=== PATIENT | female | born 1995 | race Caucasian/White ===

== ENCOUNTER 2020-10-01 20:54 | Emergency (ER) | payer OTHER, SELFPAY ==
[2020-10-01 21:04] LABS: Microscopic, Urine URINE MICROSCOPIC (MICROSCOPIC)
[2020-10-01 21:05] LABS: Appearance,Urine SL CLOUDY (Clear); Bilirubin,Urine Negative (Negative); Blood, Urine 1+ (Negative); Color,Urine YELLOW (Yellow); Glucose,Urine (UA) Negative (Negative); Ketones,Urine Negative (Negative); Leukocyte Esterase,Urine TRACE (Negative); Nitrate,Urine Negative (Negative); PH,Urine 6.5 (5.0-8.5); Protein,Urine Negative (Negative); Specific Gravity, Urine <= 1.005 (1.005-1.030); Urobilinogen,Urine 0.2 EU/dl (0.2)
[2020-10-01 21:06] VITALS: BMI 29.2
[2020-10-01 21:08] LABS: Urine Pregnancy, HCG Qual. Negative (Negative)
[2020-10-01 21:09] VITALS: BP 140/95; PULSE 91; RESP 18; TEMP 36.9; O2SAT 97; BMI 29.2
--- NOTE | 2020-10-01 21:09 | CT_ITS ---
PROCEDURE INFORMATION: Exam: CT Abdomen And Pelvis With Contrast Exam date and time: 10/01/2020 9:09 PM Age: 25 years old Clinical indication: Nausea and vomiting; Abdominal pain; Localized; Patient HX: Lower abd pain with n/v, irregular bm; Additional info: Upper abd pain TECHNIQUE: Imaging protocol: Computed tomography of the abdomen and pelvis with contrast. Radiation optimization: All CT scans at this facility use at least one of these dose optimization techniques: automated exposure control; mA and/or kV adjustment per patient size (includes targeted exams where dose is matched to clinical indication); or iterative reconstruction. Contrast material: ISOVUE; Contrast volume: 75 ml; Contrast route: IV; COMPARISON: CR KUB KUB (SINGLE VIEW) 01/21/2016 9:52 AM FINDINGS: Lungs: Lung bases are clear. Liver: Normal. No mass. Gallbladder and bile ducts: Normal. No calcified stones. No ductal dilation. Pancreas: Normal. No ductal dilation. Spleen: Normal. No splenomegaly. Adrenal glands: Normal. No mass. Kidneys and ureters: Normal. No hydronephrosis. Stomach and bowel: Unremarkable. No obstruction. No mucosal thickening. Appendix: A normal appendix is identified. Intraperitoneal space: Unremarkable. No free air. No significant fluid collection. Vasculature: Unremarkable. No abdominal aortic aneurysm. Lymph nodes: Unremarkable. No enlarged lymph nodes. Urinary bladder: Unremarkable as visualized. Reproductive: Unremarkable as visualized. Bones/joints: Unremarkable. No acute fracture. Soft tissues: Unremarkable. IMPRESSION: Negative for acute abdominopelvic pathology.
[2020-10-01 21:14] LABS: Bacteria,Urine Trace /lpf; RBC,Urine Occasional #/hpf (0-3); WBC,Urine Occasional #/hpf (0-3)
[2020-10-01 21:17] LABS: Basophils # 0.1 K/mm3 (0-0.2); Basophils % 0.6 % (0.1-2.0); Eosinophils # 0.2 K/mm3 (0.0-0.4); Eosinophils % 1.8 % (0.1-12.0); Hematocrit 39.8 % (37.0-47.0); Hemoglobin 13.9 g/dL (12.2-16.2); Lymphocytes # 4.3 K/mm3 (0.7-4.5); Mean Corpuscular Hemoglobin 29.6 pg (27.0-31.2); Mean Corpuscular Volume 84.5 fl (81-99); Mean Platelet Volume 8.2 fl (7.4-10.4); Monocytes # 0.5 K/mm3 (0.1-1.0); Monocytes % 5.6 % (1.7-9.3); Neutrophils # 4.5 K/mm3 (1.8-7.8); Platelet Count 252 K/mm3 (142-424); Red Blood Count 4.71 M/mm3 (4.20-5.40); Red Cell Distribution Width 13.6 % (11.5-17.5); White Blood Count 9.6 K/mm3 (4.8-10.8)
[2020-10-01 21:19] LABS: Alanine Aminotransferase 23 U/L (12-78); Albumin Level 4.9 g/dl (3.5-5.0); Albumin/Globulin Ratio 1.4 (1.1-1.8); Alkaline Phosphatase 63 U/L (38-126); Amylase 60 U/L (30-110); Anion Gap 14.5 mEq/L (5-15); Aspartate Amino Transferase 30 U/L (14-36); Bilirubin,Total 0.6 mg/dl (0.2-1.3); Blood Urea Nitrogen 14 mg/dl (7-17); Calcium 9.8 mg/dl (8.4-10.2); Carbon Dioxide 25 mmol/L (22.0-30.0); Chloride 104 mmol/L (98-107); Creatinine Clearance Estimated 97 mL/min (50-200); Estimated Glomerular Filt Rate 67 ml/min (>60); GFR (African American) 80 ML/MIN (>60); Globulin 3.6 g/dL (1.3-3.2); Glucose 107 mg/dl (74-100); Lipase 34 U/L (23-300); Potassium 3.5 mmoL/L (3.5-5.1); Sodium 140 mmol/L (136-145); Total Protein,Serum 8.5 g/dl (6.3-8.2)
[2020-10-01 21:24] LABS: C-Reactive Protein 2.4 mg/L (0-4)
[2020-10-01 21:31] VITALS: BP 134/72; PULSE 72; O2SAT 100
[2020-10-01 21:38] LABS: Procalcitonin 0.033 ng/mL (0.0-2.0)
[2020-10-01 21:44] LABS: Erythrocyte Sedimentation Rate 18 mm/hr (0-20)
[2020-10-01 22:00] VITALS: BP 102/58; PULSE 62; O2SAT 98
--- NOTE | 2020-10-01 22:02 | HMH.EDNVD ---
ED Disposition Clinical Impression: Abdominal pain Qualifiers: Abdominal location: epigastric Qualified Code(s): R10.13 - Epigastric pain Disposition: Home, Self-Care Condition on Discharge: Good Instructions: DI for Acute Abdominal Pain Additional Instructions: call pcp saturday for follow up Referrals: Lilia Mojica [Primary Care Provider] - - Critical Care Critical Care Time: No Attestation: On 10/01/20, the high probability of a clinically significant, sudden or life threatening deterioration of the following system(s) required my full and direct attention, intervention and personal management. The time I documented below is in addition to time spent performing reported procedures but includes the following listed in this critical care notation. Medical Decision Making - Medical Records Medical records reviewed: Yes: I reviewed the patient's medical records. - Chris Inquiry Pt receiving controlled substance: No Vital Signs: 10/01/20 21:09 10/01/20 21:31 10/01/20 22:00 Temperature 98.5 F Temperature Source Oral Pulse Rate 72 62 Pulse Rate [Right] 91 H Respiratory Rate 18 Blood Pressure 134/72 102/58 L Blood Pressure [Right Arm] 140/95 H Blood Pressure Mean [Right Arm] 110 Blood Pressure Source [Right Arm] Automatic Cuff Blood Pressure Position [Right Arm] Supine 02 Sat by Pulse Oximetry 97 100 98 Oxygen Delivery Method Room Air - Lab Data Lab results reviewed: Yes: I reviewed the patient's lab results. Lab Results 10/01/20 21:00: Urine Color Yellow, Urine Appearance Sl cloudy, Urine pH 6.5, Ur Specific [place] <= 1.005, Urine Protein Negative, Urine Glucose (UA) Negative, Urine Ketones Negative, Urine Blood 1+, Urine Nitrate Negative, Urine Bilirubin Negative, Urine Urobilinogen 0.2, Ur Leukocyte Esterase Trace, Urine RBC Occasional, Urine WBC Occasional, Ur Squamous Epith Cells 5-10, Urine Bacteria Trace 10/01/20 21:00: Urine HCG, Qual Negative 10/01/20 21:05: WBC 9.6, RBC 4.71, Hgb 13.9, Hct 39.8, MCV 84.5, MCH 29.6, MCHC 35.0, RDW 13.6, Plt Count 252, MPV 8.2, Neut % (Auto) 47.0, Lymph % (Auto) 45.0, [place] % (Auto) 5.6, Eos % (Auto) 1.8, Baso % (Auto) 0.6, Neut # (Auto) 4.5, Lymph # (Auto) 4.3, [place] # (Auto) 0.5, Eos # (Auto) 0.2, Baso # (Auto) 0.1, ESR 18 10/01/20 21:05: Sodium 140, Potassium 3.5, Chloride 104, Carbon Dioxide 25, Anion Gap 14.5, BUN 14, Creatinine 1.00, Estimated Creat Clear 97, Estimated GFR 67, Est GFR ( Amer) 80, Glucose 107 H, Calcium 9.8, Total Bilirubin 0.6, AST 30, ALT 23, Alkaline Phosphatase 63, C-Reactive Protein 2.4, Total Protein 8.5 H, Albumin 4.9, Globulin 3.6 H, Albumin/Globulin Ratio 1.4, Amylase 60, Lipase 34, Procalcitonin 0.033 Result diagrams: 10/01/20 21:05 10/01/20 21:05 Orders (Tests/Meds): ED MEDICATIONS Generic Name Dose Route Start Last Admin Trade Name Freq PRN Reason Stop Dose Admin Sodium Chloride 1,000 mls @ 999 mls/hr 10/01/20 21:15 10/01/20 21:25 Sod Chlor 0.9% 1000ml Bag IV 10/01/20 22:15 999 mls/hr .Q1H1M EMA Administration Sodium Chloride 8 ml 10/01/20 21:07 Sodium Chloride 0.9% 10ml Vial IV 10/31/20 21:06 NEEDED PRN dilute pepcid Discontinued Medications Generic Name Dose Route Start Last Admin Trade Name Freq PRN Reason Stop Dose Admin Famotidine 20 mg 10/01/20 21:07 10/01/20 21:25 Famotidine 20mg/2ml Vial IV 10/01/20 21:08 20 mg ONCE ONE Administration Iopamidol 75 ml 10/01/20 22:21 10/01/20 22:22 Iopamidol-370 (76%);100ml Bottle IV 10/01/20 22:22 75 ml ONCE ONE Administration Ketorolac Tromethamine 30 mg 10/01/20 21:07 10/01/20 21:26 Ketorolac 30mg/Ml Vial IV 10/01/20 21:08 30 mg ONCE ONE Administration Metoclopramide HCl 10 mg 10/01/20 21:07 10/01/20 21:25 Metoclopramide Hcl 10mg/2ml Vial IVP 10/01/20 21:08 10 mg ONCE ONE Administration Ondansetron HCl 4 mg 10/01/20 21:07 10/01/20 21:25 Ondansetron 4mg/2ml Vial
[2020-10-01 22:30] VITALS: BP 118/64; PULSE 73; O2SAT 99
[2020-10-01 23:00] VITALS: BP 119/72; PULSE 66; O2SAT 100
[2020-10-01 23:16] VITALS: BP 119/72; PULSE 66; RESP 16; TEMP 36.9; O2SAT 100
== END 2020-10-01 23:20 | disposition home or self-care (01) ==
PROVIDERS: Emergency Provider Emergency Medicine; PCP Family Medicine
DX: R10.13 Epigastric pain (principal); F12.10 Cannabis abuse, uncomplicated; F17.210 Nicotine dependence, cigarettes, uncomplicated
CPT/HCPCS: 74177; 80053; 81001; 81025; 82150; 83690; 84145; 85025; 85651; 86140; 96365; 96375; 99283; J2405; Q9967

== ENCOUNTER 2020-10-06 00:29 | Emergency (ER) | payer OTHER, SELFPAY ==
[2020-10-06] VITALS (8 sets, daily range): BP systolic 114–157; BP diastolic 58–107; PULSE 61–88; RESP 16–20; TEMP 36.6; O2SAT 98–100; BMI 27.4
--- NOTE | 2020-10-06 00:58 | ECG_ITS ---
APPROVED REPORT Exam: Resting ECG HR:67 bpm ECG Measurements Heart Rate 67 AXES WI 124 P 65 QRSd 78 QRS 67 QT 384 T 39 QTc 405 Conclusion Normal sinus rhythm Normal ECG Electronically signed by : Darshan Kemp, 10/06/2020 17:00:42
--- NOTE | 2020-10-06 01:09 | CT_ITS ---
PROCEDURE INFORMATION: Exam: CT Abdomen And Pelvis With Contrast Exam date and time: 10/06/2020 1:09 AM Age: 25 years old Clinical indication: Abdominal pain; Patient HX: Ruq pain TECHNIQUE: Imaging protocol: Computed tomography of the abdomen and pelvis with contrast. Radiation optimization: All CT scans at this facility use at least one of these dose optimization techniques: automated exposure control; mA and/or kV adjustment per patient size (includes targeted exams where dose is matched to clinical indication); or iterative reconstruction. Contrast material: ISOVUE; Contrast volume: 75 ml; Contrast route: IV; COMPARISON: CT ABDOMEN PELVIS W CON 10/01/2020 10:11 PM FINDINGS: Lungs: 0.3 cm nodule vs focal scarring within RIGHT middle lobe. Liver: Unremarkable. Gallbladder and bile ducts: No calcified stones. No ductal dilation. Pancreas: Unremarkable. No ductal dilation. Spleen: No splenomegaly. Adrenal glands: No mass. Kidneys and ureters: Unremarkable. No significant hydronephrosis. Stomach and bowel: Segmental areas of probable underdistention of colon. No definite mural thickening. No associated inflammatory stranding. No obstruction. Appendix: Normal caliber. No inflammation. Intraperitoneal space: No significant fluid collection. No definite free air. Vasculature: Unremarkable. No aneurysm. Lymph nodes: No pathologically enlarged lymph nodes. Urinary bladder: Unremarkable. Reproductive: Tampon within vaginal vault. Bones/joints: No acute fracture. Soft tissues: Unremarkable. IMPRESSION: 1. No definite acute intraabdominal abnormality. 2. Pulmonary nodule. If patient does not have known cancer, follow up should be based on clinical information because of the low risk of cancer in this age group. (usman Can al., Fleischner Society, 2017).
--- NOTE | 2020-10-06 01:12 | XR_ITS ---
PROCEDURE INFORMATION: Exam: XR Chest Exam date and time: 10/06/2020 1:12 AM Age: 25 years old Clinical indication: Angina pectoris; Patient HX: Anxiety w chest pains; Additional info: Passing out TECHNIQUE: Imaging protocol: XR of the chest. Views: 2 views. COMPARISON: CT ABDOMEN PELVIS W CON 10/06/2020 2:41 AM FINDINGS: Tubes, catheters and devices: Leads overlying chest. Lungs: No consolidation. Pleural spaces: No significant pleural effusion. No pneumothorax. Heart/Mediastinum: No cardiomegaly. Bones/joints: No displaced fracture. Soft tissues: Unremarkable. IMPRESSION: No definite acute cardiopulmonary disease.
[2020-10-06 01:15] LABS: Microscopic, Urine URINE MICROSCOPIC (MICROSCOPIC)
[2020-10-06 01:43] LABS: Urine Pregnancy, HCG Qual. Negative (Negative)
[2020-10-06 01:44] LABS: Appearance,Urine CLEAR (Clear); Bilirubin,Urine Negative (Negative); Blood, Urine 3+ (Negative); Color,Urine YELLOW (Yellow); Glucose,Urine (UA) Negative (Negative); Ketones,Urine Negative (Negative); Leukocyte Esterase,Urine Negative (Negative); Nitrate,Urine Negative (Negative); Protein,Urine Negative (Negative); Urobilinogen,Urine 0.2 EU/dl (0.2)
[2020-10-06 01:55] LABS: Alanine Aminotransferase 25 U/L (12-78); Albumin Level 4.3 g/dl (3.5-5.0); Albumin/Globulin Ratio 1.4 (1.1-1.8); Alkaline Phosphatase 65 U/L (38-126); Amylase 46 U/L (30-110); Anion Gap 12.7 mEq/L (5-15); Aspartate Amino Transferase 23 U/L (14-36); Basophils % 0.4 % (0.1-2.0); Bilirubin,Total 0.4 mg/dl (0.2-1.3); Blood Urea Nitrogen 5 mg/dl (7-17); Calcium 9.3 mg/dl (8.4-10.2); Carbon Dioxide 27 mmol/L (22.0-30.0); Chloride 109 mmol/L (98-107); Creatinine Clearance Estimated 130 mL/min (50-200); Eosinophils # 0.2 K/mm3 (0.0-0.4); Eosinophils % 2.2 % (0.1-12.0); Estimated Glomerular Filt Rate 100 ml/min (>60); GFR (African American) 121 ML/MIN (>60); Glucose 92 mg/dl (74-100); Hematocrit 36.4 % (37.0-47.0); Hemoglobin 12.6 g/dL (12.2-16.2); Lipase 16 U/L (23-300); Lymphocytes # 2.5 K/mm3 (0.7-4.5); Lymphocytes % 25.6 % (10-50); Mean Corpuscular HGB Conc 34.6 g/dL (31.8-35.4); Mean Corpuscular Hemoglobin 29.3 pg (27.0-31.2); Mean Corpuscular Volume 84.7 fl (81-99); Mean Platelet Volume 8.4 fl (7.4-10.4); Monocytes # 0.4 K/mm3 (0.1-1.0); Monocytes % 4.3 % (1.7-9.3); Neutrophils # 6.6 K/mm3 (1.8-7.8); Neutrophils % 67.4 % (37.0-80.0); Platelet Count 223 K/mm3 (142-424); Potassium 3.7 mmoL/L (3.5-5.1); Red Cell Distribution Width 13.6 % (11.5-17.5); Sodium 145 mmol/L (136-145); Total Protein,Serum 7.3 g/dl (6.3-8.2); White Blood Count 9.8 K/mm3 (4.8-10.8)
--- NOTE | 2020-10-06 02:01 | HMH.EDNVD ---
ED Disposition Clinical Impression: Abdominal pain Qualifiers: Abdominal location: epigastric Qualified Code(s): R10.13 - Epigastric pain Disposition: Home, Self-Care Condition on Discharge: Good Instructions: DI for Acute Abdominal Pain Additional Instructions: please see pcp for follow up Referrals: Lilia Mojica [Primary Care Provider] - - Critical Care Critical Care Time: No Attestation: On 10/06/20, the high probability of a clinically significant, sudden or life threatening deterioration of the following system(s) required my full and direct attention, intervention and personal management. The time I documented below is in addition to time spent performing reported procedures but includes the following listed in this critical care notation. Medical Decision Making - Medical Records Medical records reviewed: Yes: I reviewed the patient's medical records. - Chris Inquiry Pt receiving controlled substance: No Vital Signs: 10/06/20 00:31 10/06/20 00:58 10/06/20 01:38 Temperature 97.8 F Temperature Source Oral Pulse Rate 71 61 Pulse Rate [Right] 75 Respiratory Rate 20 Blood Pressure 139/84 134/77 Blood Pressure [Right Arm] 157/107 H Blood Pressure Mean Blood Pressure Mean [Right Arm] 123 02 Sat by Pulse Oximetry 100 98 98 10/06/20 02:01 10/06/20 02:32 10/06/20 03:09 Temperature Temperature Source Pulse Rate 69 78 74 Pulse Rate [Right] Respiratory Rate Blood Pressure 138/89 114/58 L 116/72 Blood Pressure [Right Arm] Blood Pressure Mean 82 Blood Pressure Mean [Right Arm] 02 Sat by Pulse Oximetry 100 100 98 10/06/20 03:30 Temperature Temperature Source Pulse Rate 88 Pulse Rate [Right] Respiratory Rate Blood Pressure 131/72 Blood Pressure [Right Arm] Blood Pressure Mean 91 Blood Pressure Mean [Right Arm] 02 Sat by Pulse Oximetry 98 - Lab Data Lab results reviewed: Yes: I reviewed the patient's lab results. Lab Results 10/06/20 01:05: Urine Color Yellow, Urine Appearance Clear, Urine pH 7.0, Ur Specific [place] 1.020, Urine Protein Negative, Urine Glucose (UA) Negative, Urine Ketones Negative, Urine Blood 3+, Urine Nitrate Negative, Urine Bilirubin Negative, Urine Urobilinogen 0.2, Ur Leukocyte Esterase Negative, Urine RBC 5-10, Urine WBC 3-5, Ur Squamous Epith Cells 3-5, Urine Bacteria None 10/06/20 01:05: Urine HCG, Qual Negative 10/06/20 01:34: WBC 9.8, RBC 4.30, Hgb 12.6, Hct 36.4 L, MCV 84.7, MCH 29.3, MCHC 34.6, RDW 13.6, Plt Count 223, MPV 8.4, Neut % (Auto) 67.4, Lymph % (Auto) 25.6, [place] % (Auto) 4.3, Eos % (Auto) 2.2, Baso % (Auto) 0.4, Neut # (Auto) 6.6, Lymph # (Auto) 2.5, [place] # (Auto) 0.4, Eos # (Auto) 0.2, Baso # (Auto) 0.0 10/06/20 01:34: Sodium 145, Potassium 3.7, Chloride 109 H, Carbon Dioxide 27, Anion Gap 12.7, BUN 5 L, Creatinine 0.70, Estimated Creat Clear 130, Estimated GFR 100, Est GFR ( Amer) 121, Glucose 92, Calcium 9.3, Total Bilirubin 0.4, AST 23, ALT 25, Alkaline Phosphatase 65, C-Reactive Protein 2.0, Total Protein 7.3, Albumin 4.3, Globulin 3.0, Albumin/Globulin Ratio 1.4, Amylase 46, Lipase 16 L 10/06/20 01:34: ESR 19 10/06/20 01:34: Troponin I < 0.01, Procalcitonin < 0.030 Result diagrams: 10/06/20 01:34 10/06/20 01:34 Orders (Tests/Meds): ED MEDICATIONS Generic Name Dose Route Start Last Admin Trade Name Freq PRN Reason Stop Dose Admin Sodium Chloride 1,000 mls @ 999 mls/hr 10/06/20 01:15 10/06/20 01:44 Sod Chlor 0.9% 1000ml Bag IV 10/06/20 02:15 999 mls/hr .Q1H1M EMA Administration Sodium Chloride 1,000 mls @ 999 mls/hr 10/06/20 03:15 10/06/20 03:15 Sod Chlor 0.9% 1000ml Bag IV 10/06/20 04:15 999 mls/hr .Q1H1M EMA Administration Sodium Chloride 8 ml 10/06/20 01:13 Sodium Chloride 0.9% 10ml Vial IV 11/05/20 01:12 NEEDED PRN dilute pepcid Discontinued Medications Generic Name Dose Route Start Last Admin Trade Name Freq PRN Reason Stop Dose
[2020-10-06 02:13] LABS: Troponin I < 0.01 ng/ml (0.00-0.034)
[2020-10-06 02:18] LABS: Procalcitonin < 0.030 ng/mL (0.0-2.0)
[2020-10-06 02:36] LABS: Erythrocyte Sedimentation Rate 19 mm/hr (0-20)
== END 2020-10-06 04:51 | disposition home or self-care (01) ==
PROVIDERS: Emergency Provider Emergency Medicine; PCP Family Medicine
DX: R10.13 Epigastric pain (principal); F41.9 Anxiety disorder, unspecified; F17.210 Nicotine dependence, cigarettes, uncomplicated
CPT/HCPCS: 71046; 74177; 80053; 81001; 81025; 82150; 83690; 84145; 84484; 85025; 85651; 86140; 93005; 96365; 96366; 96375; 99282; 99283; J2405; Q9967

== ENCOUNTER 2020-10-17 15:49 | Emergency (ER) | payer OTHER, SELFPAY ==
[2020-10-17 15:50] VITALS: BP 136/93; PULSE 110; RESP 18; TEMP 36.9; O2SAT 98; BMI 25.7
[2020-10-17 16:11] VITALS: BP 129/87; PULSE 104; O2SAT 97
--- NOTE | 2020-10-17 16:17 | HMH.EDABDPAI ---
ED Disposition Clinical Impression: Cholecystitis Disposition: Home, Self-Care Condition on Discharge: Fair Instructions: DI for Acute Abdominal Pain Prescriptions: Dicyclomine HCl 20 mg PO QID 7 Days #1 tab Transmission Status: Received by [facility] Referrals: Lilia Mojica [Primary Care Provider] - Robert Dupree MD [Staff Physician] - 3 days (Upper abdominal pain for several weeks. Had an outpatient DISIDA scan/HIDA scan showing decreased gallbladder function. Normal labs today. Will be discharged on Bentyl.) - Critical Care Critical Care Time: No Attestation: On 10/17/20, the high probability of a clinically significant, sudden or life threatening deterioration of the following system(s) required my full and direct attention, intervention and personal management. The time I documented below is in addition to time spent performing reported procedures but includes the following listed in this critical care notation. Medical Decision Making - Chris Inquiry Pt receiving controlled substance: No Vital Signs: 10/17/20 15:50 10/17/20 16:11 10/17/20 16:30 Temperature 98.5 F Temperature Source Oral Pulse Rate 104 H 92 H Pulse Rate [Right] 110 H Respiratory Rate 18 Blood Pressure 129/87 134/87 Blood Pressure [Right Arm] 136/93 H Blood Pressure Mean 104 Blood Pressure Mean [Right Arm] 107 02 Sat by Pulse Oximetry 98 97 97 Oxygen Delivery Method Room Air 10/17/20 17:51 10/17/20 17:58 Temperature 98 F 98.6 F Temperature Source Oral Pulse Rate 84 86 Pulse Rate [Right] Respiratory Rate 16 16 Blood Pressure 128/92 H 111/75 Blood Pressure [Right Arm] Blood Pressure Mean Blood Pressure Mean [Right Arm] 02 Sat by Pulse Oximetry Oxygen Delivery Method Room Air - Lab Data Lab Results 10/17/20 16:20: WBC 8.3, RBC 4.99, Hgb 14.9, Hct 42.1, MCV 84.4, MCH 29.9, MCHC 35.5 H, RDW 13.9, Plt Count 238, MPV 8.4, Neut % (Auto) 58.1, Lymph % (Auto) 36.8, [place] % (Auto) 3.8, Eos % (Auto) 0.8, Baso % (Auto) 0.6, Neut # (Auto) 4.8, Lymph # (Auto) 3.0, [place] # (Auto) 0.3, Eos # (Auto) 0.1, Baso # (Auto) 0.1 10/17/20 16:20: Sodium 143, Potassium 4.3, Chloride 108 H, Carbon Dioxide 24, Anion Gap 15.3 H, BUN 7, Creatinine 0.70, Estimated Creat Clear 122, Estimated GFR 100, Est GFR ( Amer) 121, Glucose 95, Calcium 10.0, Total Bilirubin 0.4, AST 22, ALT 17, Alkaline Phosphatase 71, Total Protein 8.3 H, Albumin 5.0, Globulin 3.3 H, Albumin/Globulin Ratio 1.5, Lipase 19 L 10/17/20 16:20: Serum HCG, Qual Negative 10/17/20 16:50: Urine Color Yellow, Urine Appearance Sl cloudy, Urine pH 8.0, Ur Specific [place] 1.010, Urine Protein Negative, Urine Glucose (UA) Negative, Urine Ketones Negative, Urine Blood 3+, Urine Nitrate Negative, Urine Bilirubin Negative, Urine Urobilinogen 0.2, Ur Leukocyte Esterase 1+ A, Urine RBC 10-20, Urine WBC 5-10, Ur Squamous Epith Cells 5-10, Urine Bacteria Trace Result diagrams: 10/17/20 16:20 10/17/20 16:20 Orders (Tests/Meds): ORDERS Category Date Time Status Urine Culture Stat Micro 10/17/20 16:50 Received - Physician Consults Physician Consulted: [facility] Time: 17:12 (States that the patient can follow-up in his office and see his partner Dr. Dawson this week. The [facility] will be out of town.) Medical Decision Narrative: The patient presents to the emergency department complaining of upper abdominal pain that has been ongoing for several weeks. She has been seen by her primary care physician, Dr. Schreiber, for this. He has ordered a DISIDA scan which according to the patient shows less than 20% gallbladder function. She states that she is tired of waiting on her surgery. She came to the emergency department for possible surgery. The patient's work-up in the emergency department not reveal any immediately life-threatening or dangerous causes for the patient's abdominal pain. She has a normal white blood cell count. Her liver functions a
[2020-10-17 16:30] VITALS: BP 134/87; PULSE 92; O2SAT 97
[2020-10-17 16:39] LABS: Chloride 108 mmol/L (98-107)
[2020-10-17 16:40] LABS: Potassium 4.3 mmoL/L (3.5-5.1); Sodium 143 mmol/L (136-145)
[2020-10-17 16:43] LABS: Alanine Aminotransferase 17 U/L (12-78); Albumin/Globulin Ratio 1.5 (1.1-1.8); Alkaline Phosphatase 71 U/L (38-126); Anion Gap 15.3 mEq/L (5-15); Aspartate Amino Transferase 22 U/L (14-36); Bilirubin,Total 0.4 mg/dl (0.2-1.3); Blood Urea Nitrogen 7 mg/dl (7-17); Carbon Dioxide 24 mmol/L (22.0-30.0); Creatinine Clearance Estimated 122 mL/min (50-200); Estimated Glomerular Filt Rate 100 ml/min (>60); GFR (African American) 121 ML/MIN (>60); Globulin 3.3 g/dL (1.3-3.2); Glucose 95 mg/dl (74-100); Lipase 19 U/L (23-300); Total Protein,Serum 8.3 g/dl (6.3-8.2)
[2020-10-17 16:47] LABS: Basophils # 0.1 K/mm3 (0-0.2); Basophils % 0.6 % (0.1-2.0); Eosinophils # 0.1 K/mm3 (0.0-0.4); Eosinophils % 0.8 % (0.1-12.0); Hematocrit 42.1 % (37.0-47.0); Hemoglobin 14.9 g/dL (12.2-16.2); Lymphocytes % 36.8 % (10-50); Mean Corpuscular HGB Conc 35.5 g/dL (31.8-35.4); Mean Corpuscular Hemoglobin 29.9 pg (27.0-31.2); Mean Corpuscular Volume 84.4 fl (81-99); Mean Platelet Volume 8.4 fl (7.4-10.4); Monocytes # 0.3 K/mm3 (0.1-1.0); Monocytes % 3.8 % (1.7-9.3); Neutrophils # 4.8 K/mm3 (1.8-7.8); Neutrophils % 58.1 % (37.0-80.0); Platelet Count 238 K/mm3 (142-424); Red Blood Count 4.99 M/mm3 (4.20-5.40); Red Cell Distribution Width 13.9 % (11.5-17.5); White Blood Count 8.3 K/mm3 (4.8-10.8)
[2020-10-17 16:51] LABS: HCG Qualitative, Serum Negative (Negative)
[2020-10-17 16:53] LABS: Microscopic, Urine URINE MICROSCOPIC (MICROSCOPIC)
[2020-10-17 16:58] LABS: Appearance,Urine SL CLOUDY (Clear); Bilirubin,Urine Negative (Negative); Blood, Urine 3+ (Negative); Color,Urine YELLOW (Yellow); Glucose,Urine (UA) Negative (Negative); Ketones,Urine Negative (Negative); Leukocyte Esterase,Urine 1+ (Negative); Nitrate,Urine Negative (Negative); Protein,Urine Negative (Negative); Urobilinogen,Urine 0.2 EU/dl (0.2)
--- NOTE | 2020-10-17 17:05 | PC.NURSE ---
Surgery on-call paged for consult for ER
[2020-10-17 17:08] LABS: Bacteria,Urine Trace /lpf
--- NOTE | 2020-10-17 17:09 | PC.NURSE ---
FACUNDO GONZALEZ CONSULTED WITH DR. ARCEO ABOUT PATIENT AT THIS TIME
[2020-10-17 17:51] VITALS: BP 128/92; PULSE 84; RESP 16; TEMP 36.6
[2020-10-17 17:58] VITALS: BP 111/75; PULSE 86; RESP 16; TEMP 37; O2SAT 97
== END 2020-10-17 18:00 | disposition home or self-care (01) ==
PROVIDERS: Emergency Provider Emergency Medicine; PCP Family Medicine
DX: K81.9 Cholecystitis, unspecified (principal); F17.210 Nicotine dependence, cigarettes, uncomplicated; F12.10 Cannabis abuse, uncomplicated
CPT/HCPCS: 80053; 81001; 83690; 84703; 85025; 87086; 87088; 99282

== ENCOUNTER → 2022-01-01 08:35 | Outpatient (POV) | payer OTHER, SELFPAY ==
[2022-01-01 09:04] VITALS: BP 138/85; PULSE 86; RESP 18; TEMP 36.5; O2SAT 99; BMI 28.7
--- NOTE | 2022-01-01 09:34 | EXP.PAIN.OV ---
HPI Data of Consult Patient: new to practice Consult date: 01/01/22 Requesting Physician: Maryjo Richter APRN Primary Care Provider: Lilia Mojica Consult Narrative Reason for consult: Low back pain, right leg pain, right hip pain History of present illness: Ms. Eubanks is a 26 year old female who presents today as a new patient. She is a referral from Dr. Misty Rausch's office. Today the patient rates her pain a 7 out of 10 and states the pain is all in her low back along the right side that radiates into her right hip and right leg. She describes this as a throbbing, constant sensation that is worse with increased activity. Patient states this has been going for a while however has worsened over the last couple months. She denies any new trauma or injury to the site. She states that this pain is just gotten worse over time. Previously she had been seen by pain management in [place], Dr. Patel's office. She states that she did receive trigger point injections around her right gluteal muscle however this did not improve her pain symptoms. Patient has been to a chiropractor in the last month and states she got minimal improvement during her visits. She is also seen physical therapy roughly 2 years ago however she states this made her pain symptoms worse. Patient has used ice however this made the aching sensation worse. She is used heat which provide some relief however does not give long-term results. Patient is also tried [id number] IcyHot topical cream however this does make her skin itch. Patient states she does have sensitive skin in general. Patient is currently managed with [place] [address] Mojica office. Patient denies any side effects from this medication. She states this medication does help improve her pain symptoms. Her Chris is [phone]. It is been reviewed and appropriate. CC: Maryjo Richter APRN [facility] Medical History (Updated 01/01/22 @ 09:35 by Maryjo Richter APRN) Anxiety Depression Surgical History (Updated 01/01/22 @ 09:07 by Annabella Law RN) H/O: Social History Smoking Status: Current every day smoker tobacco type: cigarettes packs per day: 1 alcohol intake: never substance use type: marijuana current occupational status: unemployed Travel in the last 8 weeks: None Review of Systems Review of Systems Review of systems:: pertinent systems reviewed and negative unless documented below Review of systems (narrative): Review of Systems: General: No recent weight changes, no fever, no sleep disturbances Respiratory: No cough, no shortness of air, no recurring pulmonary infections Cardiovascular/peripheral vascular: No chest pain, no palpitations, no edema, no shortness of breath Gastrointestinal: No new onset incontinence, normal bowel movements reported Genitourinary: No new onset incontinence Musculoskeletal: Low back pain, right leg pain Psychiatric: [Normal mood/affect] Neurological: [Denies weakness in extremities], [denies balance issues] Meds Home Medications and Allergies Home Medications Medication Instructions Recorded Confirmed Type bupropion HCl 150 mg 24 hr tablet, 150 mg PO DAILY MOOD 01/01/22 01/01/22 History extended release (Wellbutrin XL) levomefolate calcium 7.5 mg tablet 7.5 mg PO DAILY SUPPLIMENT 01/01/22 01/01/22 History (L-Methylfolate) omeprazole 40 mg capsule,delayed 40 mg PO BID STOMACH 01/01/22 01/01/22 History release venlafaxine 75 mg tablet 75 mg PO DAILY MOOD 01/01/22 01/01/22 History New Prescriptions to Start Prescriptions: Allergies Allergy/AdvReac Type Severity Reaction Status Date / Time No Known Allergies Allergy Unverified 03/26/17 15:39 Objective Vital signs: Temp Pulse Resp BP Pulse Ox 97.7 F 86 18 138/85 99 01/01/22 09:04 01/01/22 09:04 01/01/22 09:04 01/01/22 09:04 01/01/22 09:04 Narrative: Physical Exam: General: Alert and oriented x3, no acute dis
== END ==
PROVIDERS: PCP Family Medicine; Visit Provider Nurse Practitioner Family
DX: M46.1 Sacroiliitis, not elsewhere classified (principal); M54.50 Low back pain, unspecified
CPT/HCPCS: 99202; G0463

== ENCOUNTER 2022-01-09 08:12 | Day surgery (SDC) | payer OTHER, SELFPAY ==
[2022-01-09 08:24] VITALS: BP 140/89; PULSE 76; RESP 20; TEMP 36.5; O2SAT 98; BMI 28.1
[2022-01-09 08:57] VITALS: BP 142/80; PULSE 69; RESP 18; O2SAT 99
[2022-01-09 08:58] VITALS: BP 141/86; BP 142/80; PULSE 69; PULSE 71; RESP 18; RESP 20; O2SAT 99
--- NOTE | 2022-01-09 09:01 | EXP.PAIN.PRO ---
Procedure Date: 01/09/22 Time: 08:55 Anesthesiologist:: Vadim Sal CRNA Complications:: None Pre-procedure Diagnosis:: Sacroiliitis, low back pain Post-procedure Diagnosis:: Same Indications for Procedure:: Patient is a pleasant 26-year-old female who presents today for right SI injection. We are currently treating the patient for sacroiliitis, low back pain. She is currently managed with [place] [address] Brantley office. She denies any side effects from this medication. She states this medication does adequately help improve her pain symptoms. Physical exam General: Alert and oriented x3, no acute distress, pleasant cooperative Lungs: Respirations even and unlabored, symmetrical chest expansion Eyes: PERRL Musculoskeletal: Flexion and extension of lumbar spine somewhat guarded secondary to pain, antalgic gait noted. Extreme point tenderness in the right SI and positive right Eda's, Brittany's, Gaenslen's, compression and distraction exam Neurological: Speech clear, no gross sensory deficit Procedure Details:: Informed consent was gotten and the risk and benefits of the procedure were explained to the patient. Patient was taken to the procedure room where noninvasive monitors were placed on the patient including a noninvasive blood pressure cuff and pulse oximeter. The patient was placed in prone position on the procedure table. The back/buttocks was cleansed with chlorhexidine as a cleansing solution. The C arm fluoroscopy was used to view the right SI joint. Using a 22-gauge spinal needle was inserted under fluoroscopic guidance into the inferior aspect of the right SI joint. Approximately 10 mL of bupivacaine 0.25% and 40 mg Depo-Medrol was incrementally injected into the right sacroiliac joint. Patient tolerated the procedure well with no complications. Plan and Disposition:: Patient was observed in the pain clinic for period of time and then discharged home neurologically intact. We will see the patient back in 2 weeks for reevaluation of her symptoms and follow-up. Patient has been instructed to contact the office with any questions or concerns before the next appointment date. Dr. Trotter has read this note and agrees with this plan of care. This note was dictated using voice recognition software and may contain errors or omissions.
== END 2022-01-09 08:59 | disposition home or self-care (01) ==
LOC: SC.PAINP 08:12
PROVIDERS: PCP Family Medicine; Visit Provider Nurse Anesthetist, Certified Registered
DX: M46.1 Sacroiliitis, not elsewhere classified (principal); M54.50 Low back pain, unspecified
CPT/HCPCS: 27096; G0260; J1040

== ENCOUNTER → 2022-01-25 08:50 | Outpatient (POV) | payer OTHER, SELFPAY ==
[2022-01-25 09:16] VITALS: BP 139/80; PULSE 78; RESP 18; O2SAT 97; BMI 30.2
--- NOTE | 2022-01-25 11:13 | EXP.PAIN.SOA ---
[facility] Pain Management SOAP Note Subjective:: Patient is a pleasant 26-year-old female who presents today for follow-up of right SI injection on 01/09/2022. We are currently treating the patient for low back pain, sacroiliitis. Today the patient states that following this injection she had no relief of her symptoms. Today she rates her pain a 8 out of 10. She states the pain is all in her low back. Patient denies any new trauma or injury. She denies any change to location or type of pain she experiences. Patient describes this as a aching, throbbing sensation that is worse with increased activity and worsened with bending or twisting. Patient states this does affect her activities of daily living due to the pain. Patient has been given muscle relaxers in the past with her last one being baclofen 10 mg twice a day however she states no improvement of her symptoms following this. She is also prescribed [place] 5 mg for intervals of [address] Brantley's office. Patient states she has an intolerance to NSAIDs. Patient denies any side effects from this medication. She states this medication does help manage her pain symptoms. Her Chris is [phone]. It is been reviewed and appropriate. Review of Systems: General: No recent weight changes, no fever, no sleep disturbances Respiratory: No cough, no shortness of air, no recurring pulmonary infections Cardiovascular/peripheral vascular: No chest pain, no palpitations, no edema, no shortness of breath Gastrointestinal: No new onset incontinence, normal bowel movements reported Genitourinary: No new onset incontinence Musculoskeletal: Low back pain Psychiatric: [Normal mood/affect] Neurological: [Denies weakness in extremities], [denies balance issues] Objective:: Physical Exam: General: Alert and oriented x3, no acute distress, pleasant and cooperative Lungs: Respirations even and unlabored, symmetrical chest expansion Eyes: PERRL Musculoskeletal: Flexion and extension of lumbar [spine] somewhat guarded secondary to pain, [antalgic gait noted]. Positive Kemps test Neurological: Speech clear, no gross sensory deficit Assessment:: Low back pain, sacroiliitis Plan:: Patient continues to have significant pain in her low back. Patient had limited range of motion of her lumbar spine and a positive Kemps test during today's visit. I have discussed with the patient regarding a medial branch block injection. Risk and benefits have been discussed with the patient. She would like to proceed forward with this injections. Patient is not currently on any blood thinners. I will also order the patient a compounding cream and tizanidine 4 mg 3 times daily. I have counseled the patient to stop all other muscle relaxers. We will schedule the patient for a lumbar medial branch block bilaterally at L4-L5 and L5-S1. Patient has been instructed to contact the clinic with any concerns before the next appointment. Dr. Trotter has reviewed this note and agrees with this plan of care. This note was dictated using voice recognition software and make contain errors or omissions. [facility] Medical History (Updated 01/09/22 @ 08:30 by Carolina Malloy RN) Anxiety Depression Scoliosis Surgical History (Updated 01/09/22 @ 08:30 by Carolina Malloy RN) H/O dilation and curettage H/O: Social History (Updated 01/09/22 @ 08:31 by Carolina Malloy RN) Smoking Status: Current every day smoker tobacco type: cigarettes packs per day: 1 alcohol intake: never substance use type: marijuana current occupational status: employed Travel in the last 8 weeks: None
== END | disposition home or self-care (01) ==
PROVIDERS: PCP Family Medicine; Visit Provider Nurse Practitioner Family
DX: M46.1 Sacroiliitis, not elsewhere classified (principal); M54.50 Low back pain, unspecified; Z72.0 Tobacco use; Z79.899 Other long term (current) drug therapy
CPT/HCPCS: 99212; G0463